=== PATIENT | male | born 1995 | race Two or more races ===

== ENCOUNTER 2025-07-09 06:29 | Emergency (ER) | payer BC ==
[~2025-07-09] VITALS: Ht 167.6 cm; Wt 104.5 kg
[2025-07-09 06:51] VITALS: TEMP 99.1
[2025-07-09 06:54] VITALS: BP 157/87; PULSE 76; RESP 16; O2SAT 100
[2025-07-09 07:06] LABS: PLATELET COUNT (AUTO) 282 K/uL (150-450); RED BLOOD CELL COUNT(AUTO) 4.98 MIL/uL (4.50-5.90); RED CELL DISTRIBUTION WIDTH 12.9 % (11.5-14.5); WHITE BLOOD COUNT (AUTO) 8.4 K/uL (4.5-11.0)
[2025-07-09 07:14] LABS: CALCIUM, TOTAL 8.5 mg/dL (8.8-10.5); CREATININE 0.74 mg/dL (0.60-1.30); GLOMERULAR FILTR. RATE CALC > 60 mL/min (>60); GLUCOSE,RANDOM 134 mg/dL (70-110); SODIUM SERUM 138 mmol/L (136-145); UREA NITROGEN, BLOOD 15 mg/dL (7-18)
[2025-07-09 07:26] LABS: TROPONIN I-HIGH SENSITIVITY Less Than 4 ng/L (<76)
== END 2025-07-09 08:07 | disposition home or self-care (01) ==
LOC: EMS 06:29
DX: R00.2 Palpitations (principal); T43.615A Adverse effect of caffeine, initial encounter; Y92.89 Other specified places as the place of occurrence of the external cause
CPT/HCPCS: 80048; 84484; 85025; 93005; 99284